=== PATIENT | female | born 1990 | race Two or more races ===

== ENCOUNTER 2017-03-21 00:26 | Emergency (ER) | payer SELFPAY ==
[~2017-03-21] VITALS: Ht 160 cm; Wt 54.4 kg
[~2017-03-21 00:26] MED LIST: Haloperidol 5mg/ml Inj ONE; LORazepam Inj 2mg/ml 1ml ONE
[2017-03-21] MEDS ORDERED: LORazepam Inj 2mg/ml 1ml IM ONE (00:30)
[2017-03-21] MEDS ORDERED: Haloperidol 5mg/ml Inj IM ONE (00:30)
[2017-03-21 00:52] VITALS: BP 95/70
[2017-03-21] MEDS ORDERED: TdaP Vaccine 0.5ml Syr IM ONE (01:00)
[2017-03-21 01:13] LABS: BASOPHILS % (AUTO) 0.7 % (0.0-2.0); EOSINOPHILS % (AUTO) 0.4 % (0.0-3.0); LYMPHOCYTES % (AUTO) 20.1 % (20.0-45.0); MEAN CORPUSCULAR HEMOGLOBIN 33.1 PG (27.0-31.0); MEAN CORPUSCULAR HGB CONC 33.6 G/DL (32.0-36.0); MEAN CORPUSCULAR VOLUME 98 FL (80-99); MEAN PLATELET VOLUME 6.6 FL (6.5-10.1); MONOCYTES % (AUTO) 9.9 % (1.0-10.0); NEUTROPHILS % (AUTO) 68.8 % (45.0-75.0); PLATELET COUNT 219 K/UL (150-450); RED BLOOD COUNT 3.61 M/UL (4.20-5.40); RED CELL DISTRIBUTION WIDTH 12.2 % (11.6-14.8); WHITE BLOOD COUNT 8.7 K/UL (4.8-10.8)
--- NOTE | 2017-03-21 01:26 | Emergency Room Report ---
History of Present Illness General Chief Complaint: Behavioral Complaint Source: Patient, EMS Present Illness HPI Is a 26-year-old female with history of schizophrenia. Per his, she is not taking her medication. Family called 911 because she was agitated and was holding a knife. On arrival, police that they do not see any knife that she had bleeding to her hands. Patient was very agitated. Police said that her mom stated patient has not taken her medication. Police placed a [id number]. There was a questionable drug use also. Unable to get any history from patient. Allergies: Coded Allergies: No Known Allergies (Unverified , 03/21/17) Patient History Past Medical History: see triage record, old chart reviewed, psych hx Past Surgical History: other Family History: none Social History: tobacco use, drug use Last Menstrual Period: ukn Now: No Immunizations: other Reviewed Nursing Documentation: PMH: Agreed, PSxH: Agreed Nursing Documentation-PMH Past Medical History: No History, Except For Review of Systems ENT: Denies: sore throat Cardiovascular: Denies: chest pain, palpitations Gastrointestinal/Abdominal: Denies: diarrhea, nausea, vomiting Musculoskeletal: Denies: back problems Skin: Denies: rash Neurological: Denies: LAMBERT, seizures All Other Systems: negative except mentioned in HPI Physical Exam Vital Signs Date Time Temp Pulse Resp B/P Pulse Ox O2 Delivery O2 Flow Rate FiO2 03/21/17 00:21 98.4 98 16 140/82 99 Room Air vitals normal Sp02 EP Interpretation: reviewed, normal General Appearance: alert/responsive, no apparent distress, non-toxic, other - Agitated. Screaming profanity. Head: normocephalic, atraumatic Eyes: PERRL, EOMI ENT: oropharynx normal Neck: supple/symm/no masses Respiratory: effort normal, no rhonchi, no wheezing Cardiovascular: no murmur, gallop, rub Gastrointestinal: non-tender, no mass, non-distended, no rebound/guarding, normal bowel sounds Musculoskeletal: other - 1 cm laceration to right thumb. Near PIP joint. Full range of motion. Incision normal. No tendon laceration. No foreign body. Neurologic: oriented x3, sensory intact, motor strength/tone normal Skin: no rash, normal palpation Procedures Laceration/Wound Repair Laceration/Wound Repair : Consent: Verbal Wound Location: upper extremity Wound's Depth, Shape: superficial Wound Length (cm): 1 Wound Explored: clean Irrigated w/ Saline (ccs): 500 Betadine Prep?: Yes Anesthesia: 1% Lidocaine Volume Anesthetic (ccs): 1 Wound Repaired With: sutures Suture Size/Type: 5:0, proline Number of Sutures: 3 Layer Closure?: No Patient Tolerated: Well Complications: None Medical Decision Making Diagnostic Impression: Primary Impression: Psychosis Qualified Codes: F29 - Unspecified psychosis not due to a substance or known physiological condition Additional Impression: Laceration of right thumb without complication Qualified Codes: S61.011A - Laceration without foreign body of right thumb without damage to nail, initial encounter ER Course She presents with acute agitation and psychosis. She has not been taking her Risperdal. After a shot of Ativan and Haldol, she was very calm. She was able to be released from handcuffs from police. She did not require restraints here. She was cooperative for laceration repair. She is medically clear for PET evaluation. Urine is probably a contamination. We'll wait for culture before starting antibiotics. Laboratory Tests Test 03/21/17 00:46 03/21/17 01:23 White Blood Count 8.7 K/UL (4.8-10.8) Red Blood Count 3.61 M/UL (4.20-5.40) L Hemoglobin 12.0 G/DL (12.0-16.0) Hematocrit 35.6 % (37.0-47.0) L Mean Corpuscular Volume 98 FL (80-99) Mean Corpuscular Hemoglobin 33.1 PG (27.0-31.0) H Mean Corpuscular Hemoglobin Concent 33.6 G/DL (32.0-36.0) Red Cell Distribution Width 12.2 % (11.6-14.8) Platelet Count 219 K/UL (150-450) Mean Platelet Volume 6.6 FL (6.5-10.1) Neutrophils (%) (Auto) 68.8 % (45.0-75.0) Lymphocytes (%) (Auto) 20.1 % (20.0-45.0) Monocytes (%) (Auto) 9.9 % (1.0-10.0) Eosinophils (%) (Auto) 0.4 % (0.0-3.0) Basophils (%) (Auto) 0.7 % (0.0-2.0) Sodium Level 142 mEQ/L (135-145) Potassium Level 3.3 mEQ/L (3.4-4.9) L Chloride Level 101 mEQ/L (98-107) Carbon Dioxide Level 17 mEQ/L (20-30) L Anion Gap 24 (5-15) H Blood Urea Nitrogen 13 mg/dL (7-23) Creatinine 1.0 mg/dL (0.5-0.9) H Estimat Glomerular Filtration Rate > 60 mL/min (>60) Glucose Level 75 mg/dL (74-106) Calcium Level 9.2 mg/dL (8.6-10.2) Total Bilirubin 0.5 mg/dL (0.0-1.2) Aspartate Amino Transf (AST/SGOT) 18 U/L (5-40) Alanine Aminotransferase (ALT/SGPT) 10 U/L (3-33) Alkaline Phosphatase 39 U/L (35-104) Total Protein 7.7 g/dL (6.6-8.7) Albumin 4.4 g/dL (3.5-5.2) Globulin 3.3 g/dL Albumin/Globulin Ratio 1.3 (1.0-2.7) Salicylates Level < 1 mg/dL (10-30) L Acetaminophen Level < 10 ug/mL (10-30) L Serum Alcohol 30 mg/dL Urine Color Pale yellow Urine Appearance Slightly cloudy Urine pH 6 (4.5-8.0) Urine Specific [place] 1.020 (1.005-1.035) Urine Protein 3+ (NEGATIVE) H Urine Glucose (UA) Negative (NEGATIVE) Urine Ketones Negative (NEGATIVE) Urine Occult Blood 1+ (NEGATIVE) H Urine Nitrite Negative (NEGATIVE) Urine Bilirubin Negative (NEGATIVE) Urine Urobilinogen Normal MG/DL (0.0-1.0) Urine Leukocyte Esterase 2+ (NEGATIVE) H Urine RBC 0-2 /HPF (0 - 2) Urine WBC 20-30 /HPF (0 - 2) H Urine Squamous Epithelial Cells Many /LPF (NONE/OCC) H Urine Bacteria Few /HPF (NONE) Urine Fine Granular Casts 0-2 /LPF (NONE) H Urine HCG, Qualitative Negative Urine Opiates Screen Negative (NEGATIVE) Urine Barbiturates Screen Negative (NEGATIVE) Phencyclidine (PCP) Screen Negative (NEGATIVE) Urine Amphetamines Screen Negative (NEGATIVE) Urine Benzodiazepines Screen Negative (NEGATIVE) Urine Cocaine Screen Negative (NEGATIVE) Urine Marijuana (THC) Screen Positive (NEGATIVE) H Lab Results Impression labs unremarkable Last Vital Signs Date Time Temp Pulse Resp B/P Pulse Ox O2 Delivery O2 Flow Rate FiO2 03/21/17 00:52 77 16 95/70 99 Room Air 03/21/17 00:21 98.4 Status: improved Disposition: XFER TO PSYCH HOSP/UNIT Condition: Stable FRANKI GOMEZ M.D. Mar 21, 2017 01:26
[2017-03-21 01:27] LABS: ACETAMINOPHEN < 10 ug/mL (10-30); ALANINE AMINOTRANSFERASE 10 U/L (3-33); ALBUMIN/GLOBULIN RATIO 1.3 (1.0-2.7); ALCOHOL 30 mg/dL; ANION GAP 24 (5-15); ASPARTATE AMINO TRANSFERASE 18 U/L (5-40); CALCIUM 9.2 mg/dL (8.6-10.2); CARBON DIOXIDE 17 mEQ/L (20-30); CHLORIDE 101 mEQ/L (98-107); GLOMERULAR FILTRATION RATE > 60 mL/min (>60); HEMOLYSIS 8; POTASSIUM 3.3 mEQ/L (3.4-4.9); SODIUM 142 mEQ/L (135-145); TOTAL PROTEIN 7.7 g/dL (6.6-8.7)
[2017-03-21 01:36] VITALS: BP 101/72
[2017-03-21] MEDS ORDERED: RISPERDAL0.25 MG ORAL (01:37)
[2017-03-21 01:38] LABS: APPEARANCE,URINE SLIGHTLY CLOUDY; KETONES,URINE NEGATIVE (NEGATIVE); NITRITE,URINE NEGATIVE (NEGATIVE); PH,URINE 6 (4.5-8.0); PROTEIN,URINE 3+ (NEGATIVE); UROBILINOGEN,URINE NORMAL MG/DL (0.0-1.0)
[2017-03-21 01:46] LABS: LEUKOCYTE ESTERASE ,URINE 2+ (NEGATIVE)
[2017-03-21 01:47] LABS: BACTERIA,URINE FEW /HPF; FINE GRANULAR CASTS,URINE 0-2 /LPF; RBC,URINE 0-2 /HPF (0 - 2); SQUAMOUS EPITHELIAL CELL,UR MANY /LPF (NONE/OCC); WBC,URINE 20-30 /HPF (0 - 2)
[2017-03-21 03:26] VITALS: BP 99/55
[2017-03-21 05:38] VITALS: BP 98/58
[2017-03-21 07:17] VITALS: BP 99/58
[2017-03-21 09:55] VITALS: BP 128/72
== END 2017-03-21 10:02 ==
LOC: EDBD 00:26 → EMR 01:25
DX: F23 Brief psychotic disorder (principal); S61.011A Laceration without foreign body of right thumb without damage to nail, initial encounter; W26.0XXA Contact with knife, initial encounter; Y92.89 Other specified places as the place of occurrence of the external cause; Z23 Encounter for immunization; F20.9 Schizophrenia, unspecified; Z91.14 Patient's other noncompliance with medication regimen
CPT/HCPCS: 12001; 36415; 80053; 80300; 81003; 81025; 85025; 87086; 90471; 90715; 96372; 99285; G0480; J1630; 80329